=== PATIENT | male | born 1970 ===

== ENCOUNTER 2025-08-05 08:00 | Inpatient (IN) | payer OTHER ==
[2025-08-01 09:03] VITALS: BP 148/93
[2025-08-01 09:37] LABS: BASO % 0.8 % (0.1-1.2); EOS # 0.16 (0.04-0.54); EOS % 2.5 % (0.7-7.0); LYMPH # 1.38 (1.18-3.74); LYMPH % 21.5 % (19.3-53.1); MEAN PLATELET VOLUME 10.50 fl (9.4-12.4); MONO # 0.57 (0.24-0.82); MONO % 8.9 % (4.7-12.5); NEUT # 4.23 (1.56-6.13); NEUT % 66.0 % (34.0-71.1); RED CELL DISTRIBUTION WIDTH 12.4 % (11.6-14.4)
[2025-08-01 09:50] LABS: URINE APPEARANCE Clear; URINE BILIRRUBIN Negative (NEGATIVE); URINE BLOOD Negative; URINE COLOR Yellow; URINE GLUCOSE Negative (NEGATIVE); URINE KETONE Negative (NEGATIVE); URINE LEUKOCYTE Negative; URINE NITRATE Negative; URINE PROTEIN Negative (NEGATIVE); URINE UROBILINOGEN 1.0 E.U./dl
[2025-08-01 09:51] LABS: URINE EPITHELIAL CELLS 1.5 uL (0.0-38.8); URINE RBC 4.3 uL (0.0-20.8)
[2025-08-01 10:00] LABS: URINE BACTERIA 2.3 uL (0.0-1933); URINE CAST 0.29 uL (0.0-1.40); URINE WBC 1.5 uL (0.0-23.2)
[2025-08-01 10:01] LABS: INR 0.98
[2025-08-01 10:02] LABS: COVID-19 AG NEGATIVE (NEGATIVE)
[2025-08-01 10:10] LABS: BUN CREA RATIO 19.0 (7.0-25.0); CREATININE SERUM 0.72 mg/dL (0.70-1.30); GFR 112.52; GLUCOSE FASTING 126.0 mg/dL (65-100); OSMOLALITY SERUM 281.0 MOSM/KG (275-295)
[~2025-08-05] VITALS: Ht 175.3 cm; Wt 90.3 kg
[~2025-08-05 08:00] MED LIST: ADULT LOW DOSE81 M1; ATORVASTATIN CA10 MG; TAMS0.4C
[2025-08-05] MEDS ORDERED: GENTAMICIN SULFATE 40 MG/ML VIAL ONE (09:03)
[2025-08-05] MEDS ORDERED: ACETAMINOPHEN WITH CODEINE 1 UDTAB TABLET PO PRN (11:45)
[2025-08-05] MEDS ORDERED: ONDANSETRON HCL 2 MG/ML VIAL IV PRN (11:45)
[2025-08-05] MEDS ORDERED: CHLORHEXIDINE GLUCONATE 120 ML BOTTLE TOP ONE ×2 (11:51→12:00)
[2025-08-05] MEDS ORDERED: GENTAMICIN SULFATE 40 MG/ML VIAL IV ONE (12:00)
[2025-08-05] MEDS ORDERED: PHENAZOPYRIDINE HCL 100 MG TABLET PO SCH (13:00)
[2025-08-05] MEDS ORDERED: PHENAZOPYRIDINE HCL 100 MG TABLET PO ONE (17:15)
[2025-08-05 18:50] VITALS: BP 135/80; O2SAT 97
[2025-08-06 00:30] VITALS: BP 106/60; O2SAT 96
[2025-08-06 09:00] VITALS: BP 129/79; O2SAT 96
[2025-08-06] MEDS ORDERED: GENTAMICIN SULFATE 40 MG/ML VIAL IV SCH (09:00)
[2025-08-06] MEDS ORDERED: SODIUM CHLORIDE 0.45 % 1,000 ML IV SCH (09:00)
[2025-08-06] MEDS ORDERED: TAMSULOSIN HCL 0.4 MG CAP PO SCH (09:00)
[2025-08-06 09:08] LABS: BASO % 0.4 % (0.1-1.2); EOS # 0.19 (0.04-0.54); EOS % 1.8 % (0.7-7.0); LYMPH # 1.04 (1.18-3.74); LYMPH % 9.8 % (19.3-53.1); MEAN PLATELET VOLUME 11.10 fl (9.4-12.4); MONO # 1.09 (0.24-0.82); MONO % 10.2 % (4.7-12.5); NEUT # 8.23 (1.56-6.13); NEUT % 77.3 % (34.0-71.1); RED CELL DISTRIBUTION WIDTH 12.1 % (11.6-14.4)
[2025-08-06 09:33] LABS: BUN CREA RATIO 20.0 (7.0-25.0); CREATININE SERUM 0.6 mg/dL (0.70-1.30); GFR 138.87; GLUCOSE FASTING 97.0 mg/dL (65-100); OSMOLALITY SERUM 277.0 MOSM/KG (275-295)
== END 2025-08-06 13:23 | disposition home or self-care (01) | DRG 714 ==
LOC: CIR.AMB 08:00 → SURH 14:16 → O/R 14:16 → SURH 15:02
PROVIDERS: ADMIT Urology; ATTEND Urology
PROC: 0VT08ZZ Resection of Prostate, Via Natural or Artificial Opening Endoscopic (ICD-10-PCS; principal; 2025-08-05 07:00)
DX: N40.1 Benign prostatic hyperplasia with lower urinary tract symptoms (principal); R33.9 Retention of urine, unspecified